=== PATIENT | female | born 1995 | race Caucasian/White ===

== ENCOUNTER 2017-04-17 19:32 | Emergency (ER) | payer OTHER ==
[2017-04-17] MEDS ORDERED: KETOROLAC 30 MG/ML VIAL IM ONE (22:04)
[2017-04-17] MEDS ORDERED: HYDROCODONE/APAP 5/325MG TABLET PO ONE (22:06)
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
--- NOTE | 2017-04-18 14:29 | RADIOLOGY REPORT ---
EXAM: LEFT SHOULDER HISTORY: PAIN. TECHNIQUE: Three views of the left shoulder were performed. FINDINGS: No evidence of fracture or dislocation. No lytic or blastic lesion. IMPRESSION: NEGATIVE LEFT SHOULDER EXAMINATION. JOB NUMBER: [id number] [facility]
== END 2017-04-17 23:57 | disposition home or self-care (01) ==
LOC: ER 19:32
DX: M67.912 Unspecified disorder of synovium and tendon, left shoulder (principal); V49.9XXD Car occupant (driver) (passenger) injured in unspecified traffic accident, subsequent encounter
CPT/HCPCS: 96372; 99283

== ENCOUNTER 2017-07-26 17:01 | Emergency (ER) | payer OTHER ==
[2017-07-26] MEDS ORDERED: MECLIZINE 25 MG TABLET PO ONE (17:26)
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
[2017-07-26 18:06] LABS: BASO % 0.7 % (0-6); EOS % 3.7 % (0-6); GRAN % 57.9 % (47-80); HEMATOCRIT 42.6 % (35.0-47.0); HEMOGLOBIN 13.9 gm/dl (11.6-16.0); LYMPH % 31.2 % (16-45); MEAN CELL VOLUME 89.5 fl (81-97); MEAN CORPUSCULAR HEMOGLOBIN 29.2 pg (27-33); MEAN CORPUSCULAR HGB CONC 32.6 g/dl (32-36); MEAN PLATELET VOLUME 9.9 fl (7.4-10.4); MONO % 6.5 % (0-9); PLATELET COUNT 303 K/uL (130-400); RED BLOOD COUNT 4.76 M/uL (3.80-5.40); RED CELL DISTRIBUTION WIDTH 13.4 % (11.5-14.5); WHITE BLOOD COUNT W/O DIFF 7.1 K/uL (4.2-12.2)
[2017-07-26 18:13] LABS: BILIRUBIN,TOTAL < 0.20 mg/dL (0.2-1.0); BLOOD UREA NITROGEN 9 mg/dL (6-20); CREATININE 0.6 mg/dL (0.5-0.9); EST GLOMERULAR FILTRATION RATE > 60 mL/min
[2017-07-26 18:14] LABS: TOTAL PROTEIN 8.2 g/dL (6.6-8.7)
[2017-07-26 18:16] LABS: GLUCOSE,RANDOM 83 mg/dL (74-109)
[2017-07-26 18:18] LABS: ALB/GLOB RATIO 1.5 (1.1-1.8); ALBUMIN 4.9 g/dL (4.0-5.0); ALT/SGPT 12 U/L (<33); AST/SGOT 16 U/L (10.0-35.0)
[2017-07-26 18:19] LABS: ALKALINE PHOSPHATASE 75 U/L (35-104)
== END 2017-07-26 18:55 | disposition home or self-care (01) ==
LOC: ER 17:01
DX: R42 Dizziness and giddiness (principal); T43.215A Adverse effect of selective serotonin and norepinephrine reuptake inhibitors, initial encounter
CPT/HCPCS: 80053; 85025; 93005; 93010; 99283; 99284

== ENCOUNTER 2017-10-01 11:43 | Emergency (ER) | payer OTHER ==
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
[2017-10-01] MEDS ORDERED: TMP/SMZ 160MG/800MG TAB PO ONE (12:18)
[2017-10-01] MEDS ORDERED: PREDNISONE 20 MG TAB PO ONE (12:21)
== END 2017-10-01 12:54 | disposition home or self-care (01) ==
LOC: ER 11:43
DX: T78.40XA Allergy, unspecified, initial encounter (principal); R21 Rash and other nonspecific skin eruption
CPT/HCPCS: 81025; J7512; 99282

== ENCOUNTER 2017-10-02 13:14 | Emergency (ER) | payer OTHER ==
[2017-10-02] MEDS ORDERED: LORATADINE 10 MG TABLET PO STA (13:29)
[2017-10-02] MEDS ORDERED: RANITIDINE HCL 150 MG TABLET PO STA (13:29)
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
== END 2017-10-02 14:06 | disposition home or self-care (01) ==
LOC: ER 13:14
DX: L50.0 Allergic urticaria (principal)
CPT/HCPCS: 99282